=== PATIENT | male | born 1990 | race Hispanic/Latino ===

== ENCOUNTER 2017-07-27 15:42 | Emergency (ER) | payer BC, MEDICAID ==
[2017-07-27] MEDS ORDERED: DEXAMETHASONE SOD PHOSPHATE 10MG/ML 1ML VIAL ONE (15:52)
[2017-07-27] MEDS ORDERED: KETOROLAC TROMETHAMINE 60 MG/2 ML VIAL ONE (15:53)
== END 2017-07-27 16:26 | disposition home or self-care (01) ==
LOC: EDH 15:42
DX: M54.5 Low back pain (principal)
CPT/HCPCS: 72100; 96372 ×2; 99284; J1100; J1885